=== PATIENT | female | born 1980 | race Caucasian/White ===

== ENCOUNTER 2016-12-07 21:50 | Emergency (ER) | payer OTHER ==
[~2016-12-07] VITALS: Ht 162.6 cm; Wt 66.7 kg
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
[2016-12-08 00:48] VITALS: BP 121/72
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
[2016-12-08] MEDS ORDERED: IBUPROFEN800 M1 PO (01:31)
== END 2016-12-08 01:38 ==
LOC: ERH 21:50
DX: S46.919A Strain of unspecified muscle, fascia and tendon at shoulder and upper arm level, unspecified arm, initial encounter (principal); S23.41XA Sprain of ribs, initial encounter; V43.52XA Car driver injured in collision with other type car in traffic accident, initial encounter; Y92.9 Unspecified place or not applicable
CPT/HCPCS: 81025; J3101